=== PATIENT | female | born 1960 | race Caucasian/White ===

== ENCOUNTER 2018-04-14 10:09 | Inpatient (IN) | payer OTHER ==
--- NOTE | 2018-04-14 10:43 | EDPHY ---
HPI/HX/ROS/PE/MDM Narrative: CHIEF COMPLAINT: Diverticulitis HPI: This patient is a 58 year old female with no significant past medical history. Yesterday, she was diagnosed with diverticulitis at [facility]. This was confirmed by CT at [facility]. She denies having any laboratory studies at that time. She has been taking Flagyl/Cipro as prescribed. Today, she has continued abdominal pain which waxes and wanes. Her discomfort is across her lower abdomen, particularly in the left lower quadrant. She endorses nausea but denies any vomiting. Yesterday, she felt febrile. No chest pain, shortness of breath, urinary complaints, or other associated symptoms. REVIEW OF SYSTEMS: Aside from elements discussed in the HPI, a comprehensive 10-point review of systems was reviewed and is negative. PMH: Denies. SOCIAL HISTORY: Visiting from [place]. . Employed. PHYSICAL EXAM: General:Patient is alert, in no acute distress. ENT:Eyes are normal to inspection. ENT inspection normal. Neck: Normal inspection. Full range of motion. Respiratory:No respiratory distress. Breath sounds normal bilaterally. Cardiovascular: Regular rate and rhythm. Strong peripheral pulses. Normal cap refill. Abdomen: Bilateral lower abdominal tenderness, particularly LLQ. There are no peritoneal signs. There are normal bowel sounds. Back: Normal to inspection. No tenderness to palpation. Skin: Normal color. No rash. Warm and dry. Extremities: Normal appearance. Full range of motion. Neuro: Oriented x3. Normal motor function. Normal sensory function. ED Course: 58 y/o female presents with diverticulitis diagnosed by CT at an outside facility. She is currently taking antibiotics. Reviewed PMH, normal UA at her evaluation yesterday. She has a disc of her imaging study - our radiologists will review this. Plan for labs including CBC, chemistries. Plan to administer 4mg IV morphine for pain relief. WBC mildly elevated at 12,000. Labs otherwise largely unremarkable. 11:45 Reassessed patient. She would like to be admitted due to pain. Plan to administer an additional 4mg IV morphine. 11:58 Consulted with hospitalist service. Dr. Boles accepts admission for diverticulitis. Plan to administer 500mg IV Flagyl and 750mg IV Levaquin here in the emergency department prior to the patient's admission to the floor. - Data Points Laboratory Results: Laboratory Results 04/14/18 10:51 04/14/18 10:51 04/14/18 04/14/18 10:51 10:51 WBC 12.41 10^3/uL H 10^3/uL (3.80-9.50) RBC 4.09 10^6/uL L 10^6/uL (4.18-5.33) Hgb 13.5 g/dL g/dL (12.6-16.3) Hct 39.7 % % (38.0-47.0) MCV 97.1 fL fL (81.5-99.8) MCH 33.0 pg pg (27.9-34.1) MCHC 34.0 g/dL g/dL (32.4-36.7) RDW 11.9 % % (11.5-15.2) Plt Count 224 10^3/uL 10^3/uL (150-400) MPV 10.6 fL fL (8.7-11.7) Neut % (Auto) 90.0 % H % (39.3-74.2) Lymph % (Auto) 6.1 % L % (15.0-45.0) [place] % (Auto) 3.1 % L % (4.5-13.0) Eos % (Auto) 0.2 % L % (0.6-7.6) Baso % (Auto) 0.2 % L % (0.3-1.7) Nucleat RBC Rel Count 0.0 % % (0.0-0.2) Absolute Neuts (auto) 11.18 10^3/uL H 10^3/uL (1.70-6.50) Absolute Lymphs (auto) 0.76 10^3/uL L 10^3/uL (1.00-3.00) Absolute Monos (auto) 0.38 10^3/uL 10^3/uL (0.30-0.80) Absolute Eos (auto) 0.02 10^3/uL L 10^3/uL (0.03-0.40) Absolute Basos (auto) 0.02 10^3/uL 10^3/uL (0.02-0.10) Absolute Nucleated RBC 0.00 10^3/uL 10^3/uL (0-0.01) Immature Gran % 0.4 % % (0.0-1.1) Immature Gran # 0.05 10^3/uL 10^3/uL (0.00-0.10) Sodium 139 mEq/L mEq/L (135-145) Potassium 3.7 mEq/L mEq/L (3.3-5.0) Chloride 99 mEq/L mEq/L (97-110) Carbon Dioxide 27 mEq/l mEq/l (22-31) Anion Gap 13 mEq/L mEq/L (8-16) BUN 12 mg/dL mg/dL (7-23) Creatinine 0.7 mg/dL mg/dL (0.6-1.0) Estimated GFR > 60 Glucose 141 mg/dL H mg/dL (70-100) Calcium 9.4 mg/dL mg/dL (8.5-10.4) Medications Given: Dextrose/Sodium Chloride (D5w 1/2 Ns) 1,000 mls @ 100 mls/hr IV CONT TIA Stop: 10/11/18 12:59 Last Admin: 04/14/18 14:04 Dose: 1,000 mls Ondansetron HCl (Zofran) 4 mg IVP Q4HRS PRN PRN Reason: Nausea/Vomiting, Can't Take PO Stop: 10/11/18 12:52 Last Admin: 04/14/18 15:20 Dose: 4 mg Ondansetron HCl (Zofran Odt) 4 mg PO Q4HRS PRN PRN Reason: Nausea/Vomiting, Use 1st Stop: 10/11/18 12:52 Last Admin: 04/14/18 13:53 Dose: 4 mg Discontinued Medications Sodium Chloride (Ns) 1,000 mls @ 0 mls/hr IV EDNOW ONE; Wide Open PRN Reason: Protocol Stop: 04/14/18 10:46 Last Admin: 04/14/18 10:57 Dose: 1,000 mls Levofloxacin/Dextrose (Levaquin 750 Mg (Premix)) 150 mls @ 100 mls/hr IV EDNOW ONE PRN Reason: Protocol Stop: 04/14/18 13:31 Last Admin: 04/14/18 13:41 Dose: 150 mls Metronidazole/Sodium Chloride (Flagyl 500 Mg (Premix)) 100 mls @ 100 mls/hr IV EDNOW ONE PRN Reason: Protocol Stop: 04/14/18 13:01 Last Admin: 04/14/18 12:13 Dose: 100 mls Morphine Sulfate (Morphine) 4 mg IVP EDNOW ONE Stop: 04/14/18 10:46 Last Admin: 04/14/18 10:57 Dose: 4 mg Morphine Sulfate (Morphine) 4 mg IVP EDNOW ONE Stop: 04/14/18 11:43 Last Admin: 04/14/18 12:14 Dose: 4 mg General Time Seen by Provider: 04/14/18 10:27 Initial Vital Signs: Initial Vital Signs Temperature (C) 36.9 C 04/14/18 10:13 Heart Rate 95 04/14/18 10:13 Respiratory Rate 18 04/14/18 10:13 Blood Pressure 92/69 L 04/14/18 10:13 O2 Sat (%) 98 04/14/18 10:13 O2 Delivery Mode Room Air O2 (L/minute) 2 Allergies/Adverse Reactions: Penicillins Allergy (Verified 04/14/18 13:51) Rash Sulfa (Sulfonamide Antibiotics) Allergy (Verified 04/14/18 13:51) Rash tetracycline Allergy (Verified 04/14/18 13:51) Rash Home Medications: Medication Instructions Recorded Calcium Carbonate [Oyster Shell 500 mg PO DAILY 04/14/18 Calcium 500 mg (*)] Cholecalciferol Vit D3 [Vitamin D3 1,000 units PO DAILY 04/14/18 (*)] Ciprofloxacin [Cipro] 250 mg PO QID 04/14/18 Herbals/Supplements -Info Only 1 ea PO DAILY 04/14/18 Ibuprofen [Motrin (*)] 200 mg PO DAILY PRN 04/14/18 Multivitamins [Multivitamin (*)] 1 each PO DAILY 04/14/18 metroNIDAZOLE [Flagyl 500 mg (*)] 500 mg PO TID 04/14/18 Departure - Departure Disposition: [facility] Acute Clinical Impression: Diverticulitis Condition: Good Report Scribed for: Feng Zuleta Report Scribed by: Felicia Rodriguez Date of Report: 04/14/18 Time of Report: 10:44 Physician Review and Approval Statement: Portions of this note were transcribed by an ED scribe. I personally performed the history, physical exam, and medical decision making; and confirm the accuracy of the information in the transcribed note.
[2018-04-14] MEDS ORDERED: NS 1,000 ML IV ONE (10:45)
[2018-04-14 11:00] LABS: PLATELET COUNT 224 10^3/uL (150-400)
[2018-04-14] MEDS ORDERED: ACETAMINOPHEN 325 MG TAB PO PRN (12:53)
[2018-04-14] MEDS ORDERED: ONDANSETRON DISINTEGRATING 4 MG TAB PO PRN (12:53)
[2018-04-14] MEDS ORDERED: ONDANSETRON 4 MG/2 ML VIAL IVP PRN (12:53)
--- NOTE | 2018-04-14 13:24 | GHP ---
[f rep st] HISTORY AND PHYSICAL DATE OF ADMISSION: 04/14/2018 CHIEF COMPLAINT: Abdominal pain. HISTORY OF PRESENT ILLNESS: This is a 58-year-old female who is visiting from [place]. She has had 2 days of severe left mid abdominal pain that she describes as crampy. She has been nauseous but has not vomited. She had diarrhea yesterday. She has never had a colonoscopy. She has no history of i nflammatory bowel disease or any cardiac arrhythmias, such as atrial fibrillation. She tells me she did have a fever to 99.9 yesterday. She was seen at urgent care yesterday, where a CAT scan was orde red. The read on this CAT scan was diverticulitis. She was given ciprofloxacin, as well as Flagyl, and sent home. She continued to have pain, thus she presented to the ED. PAST MEDICAL/SURGICAL HISTORY: None. MEDICATIONS: None. ALLERGIES: Penicillin, sulfa and tetracycline. FAMILY HISTORY: Her father had diverticulitis. SOCIAL HISTORY: She rarely drinks. She does not smoke. She is from [place]. REVIEW OF SYSTEMS: A 10-point review of systems is conducted and is negative, except per HPI. PHYSICAL EXAM: VITAL SIGNS: Blood pressure 110/63, heart rate 91, respiration rate 16, saturating a t 98% on room air. Temperature is 36.9. GENERAL: The patient is a pleasant female who appears somew hat uncomfortable, lying in bed. HEENT: Shows her to be normocephalic, atraumatic. CARDIOVASCULAR: Regular rate and rhythm. There are no murmurs, rubs, or gallops. PULMONARY: Lungs clear to auscu ltation bilaterally. ABDOMEN: Shows her to have very infrequent bowel sounds. She is quite tender to palpation, mostly in the left lower quadrant. However, also, this does extend beyond midline to s lightly to the right side as well. She has some voluntary guarding on exam. SKIN: Shows no rash. : No Qu[place]ones. NEUROLOGIC: Exam shows her to be alert and oriented x3. She is moving all extremiti es. PSYCHIATRIC: Exam shows normal mood and affect. LABS: Her basic metabolic panel is normal. Her white count is 12.4. Platelets are 224. DATA: 1. I discussed with Dr. Zuleta. Will admit to Med/Surg. 2. I reviewed her CT scan from outside hospital. Read per our radiologist is different. He sees mo re of a focal colitis without definite diverticulitis. IMPRESSION/PLAN: This is a 58-year-old female with colitis. 1. Colitis: Her abdominal exam is somewhat concerning. There was no arterial occlusion seen on marily ging to indicate ischemia. Certainly, new onset of inflammatory bowel disease and potentially infect ion are most likely differential. Also have to consider a malignancy as well. For now, would keep h er on intravenous antibiotics. Hold her n.p.o. Give her D5 half-normal saline. Will place her on L evaquin, as well as Flagyl given her allergy profile. There is a low threshold to involve GI if she does not improve with antibiotics as well as surgery if her abdominal exam continues to be concerning . I have sent off a GI pathogen panel as well. 2. Leukocytosis: This is due to the above process. BILLING: This is a high-risk diagnosis warranting observing her in the hospital. /[id number]/MODL
[2018-04-14] MEDS: D5W 1/2 NS 1,000 ML IV SCH (14:04)
[2018-04-14] MEDS ORDERED: PROMETHAZINE HCL 25 MG/ML INJ IVP PRN ×2 (15:25→17:00)
--- NOTE | 2018-04-14 16:21 | ASMTCMCOM ---
CM Note CM Note Notes: Patient chart reviewed. 58 year old female from [place] admitted via ED with abdominal pain and recent diagnosis of diverticulitis. She is admitted to the hospitalist for hydration and antibiotics. No needs identified. CM available should needs arise. Plan: Home independent. Date Signed: 04/14/2018 04:20 PM Electronically Signed By:Chrissy Perez RN
[2018-04-14] MEDS: oxyCODONE IR 5 MG TAB PO PRN (17:30)
[2018-04-14] MEDS: HYDROmorphONE/DILAUDID 1 MG/ML INJ IVP PRN ×2 (18:22→22:27)
--- NOTE | 2018-04-14 18:41 | GCON ---
[f rep st] CONSULTATION DATE OF CONSULTATION: 04/14/2018 HISTORY OF PRESENT ILLNESS: A 58-year-old female referred by her sister. Per the patient's family, she has had a 2-day history of intermittent left lower quadrant and diffuse abdominal pain. The abdirizak ent states this had a gradual onset and the patient was seen in Urgent Care yesterday. The patient h ad a CT scan at that time, which demonstrated inflammation of the colon. The patient was sent home w ith oral antibiotics, however, her pain returned. She presented to the emergency department with inc reased pain and was admitted for observation. At this point, the patient states her pain is slightly improved. She still complains of left lower quadrant discomfort that radiates across the front of h er abdomen. She has noted intermittent discomfort similar to this with urination. However, she tara es frequency or blood. She also denies burning at the urethra. She has not had any fevers at home o vijay 100. She has no prior history of similar symptoms. FAMILY HISTORY: Significant for father with a history of diverticulitis. There is no history of col on cancer, although her father has had a history of polyps. The patient has had significant nausea b ut has not had any vomiting. Nausea has improved with medication. PAST MEDICAL HISTORY: Negative. MEDICATIONS: None. ALLERGIES: Include penicillin, tetracycline, and sulfa. PAST SURGICAL HISTORY: Negative. SOCIAL HISTORY: The patient is a nonsmoker and drinks minimally. PHYSICAL EXAM: VITAL SIGNS: Temperature is 36.9, pulse is 70, respirations 16, blood pressure is 97 /61. GENERAL: She is an ill-appearing female. HEART: Regular rate and rhythm. RESPIRATORY: Her lungs are clear to auscultation bilaterally. ABDOMEN: Slightly distended. It is diffusely tender t o palpation with increased tenderness in the left lower quadrant. There is mild guarding but no rebo und. No distinct masses identified. EXTREMITIES: Without cyanosis, clubbing, or edema. DIAGNOSTIC DATA: Patient has a CBC with a white count of 12.4, hemoglobin 13.5, hematocrit of 39.7, and platelets of 224. Chemistries demonstrate a sodium of 139, potassium 3.7, chloride 99, CO2 of 27 , BUN 12, creatinine 0.7, and glucose 141. DIAGNOSTIC IMAGING: Patient had a CT scan of the abdomen and pelvis from 04/13/2018. I reviewed thi s with the radiologist and it demonstrates colitis in the descending/sigmoid junction area. There is a potential narrowing in this area that is likely due to diverticula which are seen throughout the r est of the sigmoid colon. However, there is no distinct evidence of diverticulitis. There is some r eactive small bowel thickening. There is no free fluid or abscess identified. The patient also has significant constipation. ASSESSMENT/PLAN: A 58-year-old female with colitis that is possibly secondary to diverticulitis. Lalo pena also has small bowel inflammation and constipation. Treatment has been discussed at length wit h the patient and her family. This includes initial n.p.o. status with IV antibiotics. We will also begin laxatives in an attempt to relieve the constipation. Signs and symptoms of concern have been discussed in detail. The possibility of urgent surgery with potential colostomy has also described. Their questions have been answered. /[id number]/MODL
[2018-04-14] MEDS: DOCUSATE SODIUM 100 MG CAP PO SCH (20:35)
[2018-04-15] MEDS: D5W 1/2 NS 1,000 ML IV SCH ×2 (02:44→16:52)
[2018-04-15 05:04] LABS: PLATELET COUNT 180 10^3/uL (150-400)
[2018-04-15] MEDS: HYDROmorphONE/DILAUDID 1 MG/ML INJ IVP PRN (06:04)
[2018-04-15] MEDS ORDERED: MAGNESIUM HYDROXIDE 30 ML UDCUP PO PRN (09:42)
--- NOTE | 2018-04-15 09:45 | SOAPPROG ---
SOAP Progress Note Assessment/Plan: Assessment: Marked improvement. Start clears, laxatives, ambulate. Plan transition to po abx when bret po well. Plan: 04/15/18 09:43 Subjective: Patient feels better, minimal pain, no N/V. + flatus, - BM. Objective: Vital Signs Temp Pulse Resp BP Pulse Ox 36.8 C 69 12 84/53 L 94 04/15/18 04:31 04/15/18 04:31 04/15/18 04:31 04/15/18 04:31 04/15/18 04:31 Laboratory Results 04/15/18 04:24 04/15/18 04:24 04/14/18 04/15/18 04/16/18 05:59 05:59 05:59 Intake Total 1989 1258 Output Total 2079 Balance -90 1259 Alert, NAD RRR Abd soft, mild TTP lower abd. No rebound/guarding ICD10 Worksheet Patient Problems: Problems Problem Status Onset Diverticulitis Acute
[2018-04-15] MEDS: oxyCODONE IR 5 MG TAB PO PRN (10:56)
[2018-04-15] MEDS: DOCUSATE SODIUM 100 MG CAP PO SCH ×2 (12:25→20:08)
--- NOTE | 2018-04-15 13:01 | HOSPPROG ---
Hospitalist Progress Note Assessment/Plan: # colitis - possibly d/t diverticulitis; overall improved today - cont levaquin/flagyl - try to advance diet today - appreciate Dr Ty's care - will need outpatient colonoscopy for more definitive diagnosis - GI pathogen panel still pending Subjective: abd pain better but still present Objective: Vital Signs Temp Pulse Resp BP Pulse Ox 36.8 C 71 17 115/69 97 04/15/18 11:33 04/15/18 11:33 04/15/18 11:33 04/15/18 11:33 04/15/18 11:33 Laboratory Results 04/15/18 04:24 04/15/18 04:24 04/14/18 04/15/18 04/16/18 05:59 05:59 05:59 Intake Total 1989 1258 Output Total 2079 Balance -90 1259 - Physical Exam Constitutional: uncomfortable Cardiovascular: regular rate and rhythym, no murmur, rub, or gallop Respiratory: no respiratory distress, no rales or rhonchi, clear to auscultation Gastrointestinal: normoactive bowel sounds, other (soft, TTP mod/severe in LLQ) , No guarding, No rebound ICD10 Worksheet Patient Problems: Problems Problem Status Onset Diverticulitis Acute
--- NOTE | 2018-04-15 14:14 | PDMN ---
Medical Necessity Medical necessity: MCG: M565, Inflammatory Bowel Disease, A-2 days: 58 y/o pt with colitis, possibly diverticulitis, is hypotensive, H/H dropped 39.7/13.5 to 31.2/10.3 in 24 hours, needs continued IV antibx, IV fluids, IV opioids for continued abd pain and IV antiemetics, pt tolerating only clear liquids at this time, GI pathogen panel pending. Status change to INPT 04/15/18 @ 1253.
[2018-04-16] MEDS: D5W 1/2 NS 1,000 ML IV SCH (03:19)
[2018-04-16] MEDS: DOCUSATE SODIUM 100 MG CAP PO SCH (09:05)
--- NOTE | 2018-04-16 12:39 | GDS ---
[f rep st] DISCHARGE SUMMARY ALL DIAGNOSES: Colitis. HOSPITAL COURSE: This is a 58-year-old female, who presented with severe abdominal pain. She had gary d imaging as an outpatient which showed possible colitis. It was reviewed extensively with our radio logist here who felt that it was somewhat atypical for diverticulitis given the approximately 5 cm le ngth of colon involved; however, there was a diverticula right there so was difficult to call this co litis versus diverticulitis. She was initially extremely tender to palpation. I was concerned that she may require surgery given this. Thus Dr. Ty was consulted and has been involved in her care . She was treated empirically for diverticulitis with Levaquin as well as Flagyl (she has an allergy to penicillin). She improved markedly. On the day of discharge, she is not quite tolerating full m eals, however, is able to adequately maintain her hydration and feel safe being discharged home. I w ill place her back on Cipro as well as Flagyl to complete a total of 7 days of antibiotics. I have d iscussed this with her. She is from [place]. She will return to [place] and get an outpatient colon oscopy in about 1 month. 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 Does not necessarily re quire directed treatment; however, given the severity of her illness, the question of involved divert iculitis, I think empiric treatment for diverticulitis is appropriate. I discussed this with Dr. Mey parish on discharge. BILLING ESTIMATE: More than 30 minutes on the day of discharge coordinating care. /[id number]/MODL
[2018-04-16 12:46] VITALS: BP 99/64
--- NOTE | 2018-04-16 13:00 | ASMTDCNOTE ---
Case Management Discharge Discharge Order Complete? Answers: Yes Patient to Obtain Answers: Independently Medications Transportation Arranged Answers: Family/Friends Family Notified Answers: Yes Discharge Comments Notes: Pt D/Junito independenttly. Date Signed: 04/16/2018 12:59 PM Electronically Signed By:Vikki Thurston
--- NOTE | 2018-04-16 13:01 | ASDISCHSUM ---
Discharge Information Plan Status:Home with No Needs Medically Cleared to Leave: Discharge Date: CM D/C Disposition:Home, Routine, Self-Care ADT D/C Disposition:Home, Routine, Self-Care Projected Discharge Date: Transportation at D/C:Family Discharge Delay Reason: Follow-Up Date: Discharge Slot: Final Diagnosis: Placement Information Patient Contact Information Contact Name:JAMIR Relationship: Address: Home Phone: City: [facility] Phone: State/[place] Code: Email: Financial Information Financial Class:HMO and PPO Plans Primary Plan Desc:[facility] Primary Plan Number:[id number] Secondary Plan Desc: Secondary Plan Number: Assessment Information [facility] CM Progress Note CM Note CM Note Notes: Patient chart reviewed. 58 year old female from [place] admitted via ED with abdominal pain and recent diagnosis of diverticulitis. She is admitted to the hospitalist for hydration and antibiotics. No needs identified. CM available should needs arise. Plan: Home independent. Date Signed: 04/14/2018 04:20 PM Electronically Signed By:Chrissy Perez RN Case Management Discharge Plan Note Case Management Discharge Discharge Order Complete? Answers: Yes Patient to Obtain Answers: Independently Medications Transportation Arranged Answers: Family/Friends Family Notified Answers: Yes Discharge Comments Notes: Pt Brayan/Junito independenttly. Date Signed: 04/16/2018 12:59 PM Electronically Signed By:Vikki Thurston Intervention Information
== END 2018-04-16 13:30 | disposition home or self-care (01) | DRG 392 ==
LOC: F1N 12:55 → OBSVTOIN 04-15 12:59
PROVIDERS: ADMIT Student in an Organized Health Care Education/Training Program; ATTEND Student in an Organized Health Care Education/Training Program
DX: K57.30 Diverticulosis of large intestine without perforation or abscess without bleeding (principal); K52.9 Noninfective gastroenteritis and colitis, unspecified; D72.829 Elevated white blood cell count, unspecified; Z88.0 Allergy status to penicillin; Z88.2 Allergy status to sulfonamides
CPT/HCPCS: 96365; G0378; J1170; J1956; J2270; J2405; J2550